=== PATIENT | female | born 1995 | race Caucasian/White ===

== ENCOUNTER 2017-03-26 15:08 | Inpatient (IN) ==
[2017-04-11] MEDS ORDERED: KEFZOL 1 GM/D5W 1 GM/50 ML IVPB IV PRN (05:01)
[2017-04-11] MEDS ORDERED: BICITRA PO ONE (05:15)
[2017-04-11] MEDS ORDERED: SODIUM CHLORIDE 0.9% INJ ONE (05:15)
[2017-04-11] MEDS ORDERED: PEPCID IV ONE (05:15)
[2017-04-11] MEDS: LR 1,000 ML IV SCH ×2 (05:25→06:59)
[2017-04-11 05:49] LABS: MANUAL DIFF NEEDED? NO
[2017-04-11 05:49] LABS: URINE SOURCE VOIDED
[2017-04-11 05:53] LABS: BASO% 0.4 % (0.0-0.8); EOS# 0.24 X1000 (0.0-0.7); EOS% 2.1 % (0.0-10.0); HEMATOCRIT 34.2 % (37.0-47.0); HEMOGLOBIN 12.4 g/dL (12.0-16.0); IMM GRAN# 0.17 X1000 (0.0-0.04); IMM GRAN% 1.5 % (0.0-0.5); LYMPH% 16.8 % (20.5-51.1); MCHC 36.3 g/dL (33-37); MCV 93.7 FL (81-99); MONO# 1.07 X1000 (0.11-0.59); MONO% 9.4 % (1.7-9.3); MPV 10.9 FL (7.4-10.4); NEUT% 69.8 % (42.2-75.2); PLT 260 X1000 (130-400); RBC 3.65 XMIL (4.2-5.4)
[2017-04-11 05:59] LABS: UR AMPHETAMINES QUAL NONE DETECTED (NONE DETECT); UR BARBITUATES QUAL NONE DETECTED (NONE DETECT); UR BENZODIAZEPIN QUAL NONE DETECTED (NONE DETECT); UR CANNABINOIDS QUAL NONE DETECTED (NONE DETECT); UR COCAINE QUAL NONE DETECTED (NONE DETECT); UR MDMA QUAL NONE DETECTED (NONE DETECT); UR METHADONE QUAL NONE DETECTED (NONE DETECT); UR METHAMPHETAMINE QUAL NONE DETECTED (NONE DETECT); UR OPIATES QUAL NONE DETECTED (NONE DETECT); UR OXYCODONE QUAL NONE DETECTED (NONE DETECT); UR PCP QUAL NONE DETECTED (NONE DETECT); UR TCA QUAL NONE DETECTED (NONE DETECT)
[2017-04-11 06:03] LABS: BILIRUBIN URINE NEGATIVE (NEGATIVE); BLOOD URINE NEGATIVE (NEGATIVE); CLARITY CLEAR (CLEAR); COLOR YELLOW; GLUCOSE URINE NEGATIVE (NEGATIVE); LEUKOCYTES URINE TRACE (NEGATIVE); NITRITE URINE NEGATIVE (NEGATIVE); PROTEIN URINE NEGATIVE (NEGATIVE); SP GRAVITY URINE 1.015; UROBILINOGEN URINE NORMAL
[2017-04-11] MEDS ORDERED: ZOFRAN IV ONE (07:00)
[2017-04-11] MEDS ORDERED: DURAMORPH ONE (07:18)
--- NOTE | 2017-04-11 07:22 | HISTORY AND PHYSICAL ---
CHIEF COMPLAINT: Here for scheduled repeat section. HISTORY OF PRESENT ILLNESS: The patient is a 21-year-old, G2, P1-0-0-1 at 39 weeks and 3 days with a history of a prior section x1 secondary to failure to progress, who is here today for a scheduled repeat section. She has been given her options, and she chooses to go this route. She denies any specific OB complaints at this time. PAST MEDICAL HISTORY: Significant for obesity. PAST SURGICAL HISTORY: 1. Cholecystectomy, laparoscopic in 10/2010. 2. Tonsillectomy and adenoidectomy as a child. 3. delivery x1 in 2009. OBSTETRICAL HISTORY: On 09/22/2010, she had a 40-week induction of labor with failure to progress past 2 cm with primary section by Dr. Alissa Argueta of an 8 pound 1 ounce female. She denies complications. ALLERGIES: Naproxen leads to itching and throat swelling (she states she is 100 % okay with Motrin, it's just Aleve.) MEDICATIONS: vitamins 1 p.o. daily. SOCIAL HISTORY: She is currently unemployed. She denies any alcohol or drug use. She does smoke half a pack a day since age 10. This is down from 1-1/2 packs per day. She currently lives with her mom and her mom's boyfriend. She was recently incarcerated and got out of halfway on 02/28/2017. Marital status: Engaged. FAMILY HISTORY: Significant for Down syndrome in cousins, heart disease in maternal grandmother and paternal grandfather. Hypertension in maternal grandfather, paternal grandfather. Colon cancer in father at age 40, paternal grandfather who was older. Breast cancer in paternal grandmother who is unsure what age and paternal aunt at age 45. SIGNIFICANT LABORATORY DATA: Group B strep is negative. She passed her 1 hour Glucola at 103. Quad screen was low risk. Blood type is AB positive. Antibody negative. Rubella is positive. The remainder of labs were unremarkable. PHYSICAL EXAMINATION: CURRENT VITAL SIGNS: Temperature 96.7 degrees, heart rate 88, blood pressure 113/72. Weight 246 pounds as of 04/09/2017. GENERAL: The patient is awake, alert, oriented, in no acute distress. Obese, white female. CHEST: Clear to auscultation bilaterally. CARDIOVASCULAR: Regular rate and rhythm. ABDOMEN: Soft, gravid, obese, and nontender with a well-healed Pfannenstiel incision beneath her pannus. CERVICAL EXAM: Deferred. EXTREMITIES: Approximately 1+ edema bilateral lower extremities. CURRENT LABORATORY: Hemoglobin is 12.4, hematocrit is 34.2. Urinalysis showed trace white blood cells. UDS is negative. RPR is nonreactive. NST: reactive and reassuring ASSESSMENT AND PLAN: A 21-year-old, G2, P1-0-0-1 at 39 weeks and 3 days for planned repeat section. Risks, benefits, alternatives and indications of surgery discussed with the patient including but not limited to bleeding, infection, injury to other organs, risk of blood clots and blood transfusion, risk of hysterectomy, anesthesia, and . The patient stated understanding, and she desires to proceed. We are monogram operator to the OR for planned repeat section. cc: Bailey Chester MD MTDD
[2017-04-11] MEDS ORDERED: EPHEDRINE ONE (07:34)
[2017-04-11] MEDS ORDERED: ZOFRAN ONE (07:53)
[2017-04-11] MEDS ORDERED: PITOCIN ONE (07:53)
[2017-04-11] MEDS ORDERED: PITOCIN 20 UNITS/LR 20 UNITS/1,000 ML IV.SOLN ONE (08:07)
[2017-04-11] MEDS ORDERED: PERCOCET-5 PO PRN (08:41)
[2017-04-11] MEDS ORDERED: PITOCIN 20 UNITS/LR 20 UNITS/1,000 ML IV.SOLN IV ONE (08:41)
[2017-04-11] MEDS ORDERED: BOOSTRIX VACCINE IM ONE (08:41)
[2017-04-11] MEDS ORDERED: DEMEROL IM PRN (08:41)
[2017-04-11] MEDS ORDERED: DEMEROL PO PRN ×2 (08:41)
[2017-04-11] MEDS ORDERED: CYTOTEC PO PRN (08:41)
[2017-04-11] MEDS ORDERED: PHENERGAN IM PRN (08:41)
[2017-04-11] MEDS ORDERED: M-M-R II VACCINE SUBQ ONE (08:41)
[2017-04-11] MEDS ORDERED: HYDROXYZINE PO PRN (08:41)
[2017-04-11] MEDS ORDERED: HYDROXYZINE IM PRN (08:41)
[2017-04-11] MEDS ORDERED: MYLICON PO PRN (08:41)
[2017-04-11] MEDS ORDERED: PITOCIN IM PRN (08:41)
[2017-04-11] MEDS ORDERED: AMBIEN PO PRN (08:41)
[2017-04-11] MEDS ORDERED: ZOFRAN IV PRN ×2 (09:41)
[2017-04-11] MEDS ORDERED: BENADRYL IV PRN (09:41)
[2017-04-11] MEDS ORDERED: NORCO-5 PO PRN (09:41)
[2017-04-11] MEDS ORDERED: NARCAN INJ PRN (09:41)
[2017-04-11] MEDS ORDERED: ZOFRAN ODT PO PRN (09:41)
[2017-04-11] MEDS ORDERED: MORPHINE IV PRN (09:43)
[2017-04-11] MEDS: MYLICON PO SCH ×4 (09:52→20:20)
[2017-04-11] MEDS: NORCO-10 PO PRN ×2 (11:11→21:40)
--- NOTE | 2017-04-11 13:29 | OPERATIVE NOTE ---
PROCEDURE DATE: 04/11/2017 PREPROCEDURE DIAGNOSES: 1. 21-year-old, G2, P1-0-0-1 at 39 weeks and 3 days. 2. Prior x1 desiring repeat. POSTOPERATIVE DIAGNOSIS: G2, P2-0-0-2, status post repeat with vacuum assisted delivery. PROCEDURE: Repeat low uterine transverse . SURGEON: Dr. Bailey Chester. STRATEGIC PARTNERSHIP SPECIALIST: JALEN Walters. ANESTHESIA: Was spinal. FINDINGS: No intra-abdominal adhesions. Clear fluid upon amnion rupture. 8 pounds 3 ounces male with Apgars 9 at 1 minute, 9 at 5 minutes. Otherwise normal-appearing uterus, tubes, and ovaries. COMPLICATIONS: None. ESTIMATED BLOOD LOSS: 500 mL. SPECIMENS: Placenta removed and discarded. DRAINS: López with clear urine at the end of the case. PROCEDURE: The patient was taken to the operating room, where she was properly prepped and draped in a normal sterile fashion in the dorsal supine position. Adequate anesthesia was noted and a Pfannenstiel skin incision was made approximately 2 inches below her prior scar and the incision was carried down sharply. Incision was extended laterally with Mg scissors. Oscar clamps x2 were then used to elevate the superior aspect of the fascia incision and the rectus muscles were dissected off bluntly and sharply. Attention was then turned to the inferior aspect of the fascia incision and the rectus muscles were dissected off in a similar manner. Rectus muscles at this time were then and the peritoneum was entered with a hemostat and the peritoneum was stretched. Bladder blade was inserted and the vesicouterine peritoneum was easily identified. The low transverse incision was then made with a scalpel above this reflection and clear fluid was noted upon amnion rupture. The baby's vertex was then brought to the incision but did require a Kiwi assist. There was 1 pop off. However once good positioning was allowed the baby delivered without any complications. The baby was bulb suctioned. Cord was clamped and cut and baby was handed off to awaiting nursery staff. Cord blood was obtained and then the placenta was gently massaged from the uterus. Uterus was exteriorized, cleared of clots and debris and the uterine incision was closed initially with a #1 chromic in a running, locked fashion. A 2nd layer of #1 Biosyn was then used to imbricate over the initial incision. Excellent hemostasis was noted. The uterus was tilted forward. Abdomen was cleared of clots and debris. Uterus was tilted back returned to the abdomen and gutters were cleared. The incisional dissection was noted to be hemostatic. At this point in time, the peritoneum was then closed with a 2-0 Polysorb and rectus muscles were inspected for hemostasis and then the rectus muscles were loosely reapproximated with single box stitch of #1 chromic. Rectus muscles were assured hemostatic with the Bovie and the fascia was closed with a #1 PDS in a running fashion. Subcutaneous tissue was copiously irrigated, maintained hemostatic with the Bovie and the subcutaneous tissue was closed with 2-0 plain gut interrupted sutures. The skin was closed with a 4-0 Biosyn on a Solo needle. Patient tolerated the procedure well. All sponge , lap, and needle counts were correct x3 and the patient went to recovery room in stable condition. cc: Bailey Chester MD MTDD
[2017-04-11] MEDS: PITOCIN 10 UNITS/LR 10 UNIT/1,000 ML IV.SOLN IV SCH ×2 (14:21→22:52)
[2017-04-11] MEDS: PERICOLACE PO SCH (20:20)
[2017-04-12] MEDS: LR 1,000 ML IV SCH (05:07)
[2017-04-12 06:09] LABS: HEMATOCRIT 31.4 % (37.0-47.0); HEMOGLOBIN 11.2 g/dL (12.0-16.0); MCH 33.7 PG (27-31); MCHC 35.7 g/dL (33-37); MCV 94.6 FL (81-99); MPV 11.3 FL (7.4-10.4); RBC 3.32 XMIL (4.2-5.4)
[2017-04-12] MEDS ORDERED: LR 1,000 ML IV SCH (08:42)
[2017-04-12] MEDS: NORCO-10 PO PRN (09:07)
[2017-04-12] MEDS: MYLICON PO SCH ×4 (09:08→21:09)
[2017-04-12] MEDS: PERCOCET-10 PO PRN ×2 (14:39→21:09)
[2017-04-12] MEDS: PERICOLACE PO SCH (21:09)
[2017-04-12] MEDS: DULCOLAX PR PRN (21:13)
[2017-04-13] MEDS: PERCOCET-10 PO PRN ×2 (01:40→06:46)
[2017-04-13 04:04] VITALS: BP 132/79
[2017-04-13] MEDS: DULCOLAX PR PRN (06:46)
--- NOTE | 2017-04-13 06:46 | DISCHARGE SUMMARY ---
ADMISSION DATE: 04/11/2017 DISCHARGE DATE: 04/13/2017 ADMITTING DIAGNOSES: 1. Term . 2. Previous . DISCHARGE DIAGNOSES: 1. Term . 2. Previous . PRINCIPLE PROCEDURE: Repeat low transverse . SUMMARY: Irene Velasquez is a 21-year-old 2, para 1-0-0-1 at 39-1/2 weeks gestation. She previously had had a section and was admitted to the hospital by Dr. Chester for a repeat C- section. This was performed under spinal anesthesia delivering an 8 pound 3 ounce male . 's of 9 at 1 minute, and 9 at 5 minutes. There were no intraoperative complications. Following delivery, the patient did well. She remained afebrile and all vital signs were stable. She had an admission hemoglobin and hematocrit of 12.4/34.2 with discharge hemoglobin and hematocrit being 11.2/31.4. On the day of discharge, cardiac and pulmonary examinations were normal. Bowel and bladder function was normal. Incision was clean and dry. She was having scant vaginal bleeding. Ms. Velasquez will be discharged today, and I will see her back in the office in 1 week. Routine discharge instructions, activity limitations, and precautions were discussed. She will continue her vitamins and she is given prescriptions for [place] and Motrin for postoperative pain. cc: MD Bailey Reveles MD
[2017-04-13] MEDS ORDERED: PNEUMOVAX 23 IM ONE (07:45)
[2017-04-13] MEDS: MYLICON PO SCH (09:56)
== END 2017-04-13 11:15 | disposition home or self-care (01) ==
LOC: P.LD 15:08 → P.WC 04-11 12:43
PROVIDERS: ADMIT Obstetrics & Gynecology; ATTEND Obstetrics & Gynecology